=== PATIENT | female | born 1995 | race Caucasian/White ===

== ENCOUNTER 2019-03-16 18:39 | Emergency (ER) | payer OTHER ==
[~2019-03-16] VITALS: Ht 157.5 cm; Wt 57.1 kg
[2019-03-16] MEDS ORDERED: PRED20TA PO (20:19)
[2019-03-16 20:30] VITALS: BP 128/81
[2019-03-16] MEDS ORDERED: predniSONE 20 MG TAB PO ONE (20:30)
[2019-03-16] MEDS ORDERED: diphenhydrAMINE 50 MG CAP PO ONE (20:30)
== END 2019-03-16 20:32 | disposition home or self-care (01) ==
LOC: M ED 18:39
DX: T78.49XA Other allergy, initial encounter (principal); Y92.9 Unspecified place or not applicable; Y93.9 Activity, unspecified; Z72.0 Tobacco use

== ENCOUNTER 2019-03-23 16:48 | Emergency (ER) | payer OTHER ==
[~2019-03-23] VITALS: Ht 157.5 cm; Wt 56.8 kg
[~2019-03-23 16:48] MED LIST: PRED20TA PO
[2019-03-23] MEDS ORDERED: ONDANSETRON 4 MG ORAL DISINTEGRATING TAB (Q0162 PER 1MG) PO ONE (18:00)
[2019-03-23 18:09] LABS: BASO # 0.1 10^3/uL (0.0-0.2); BASO % 0.5 % (0.0-1.0); EOS # 0.1 10^3/uL (0.0-0.50); EOS % 0.9 % (0.0-3.0); HEMATOCRIT 40.4 % (36.0-47.0); HEMOGLOBIN 13.6 g/dl (12.0-15.5); LYMPH # 2.7 10^3/uL (1.5-6.5); LYMPH % 27.6 % (24.0-44.0); MEAN CORPUSCULAR HEMOGLOBIN 31.1 pg (27.0-33.0); MEAN CORPUSCULAR HGB CONC 33.7 g/dl (32.0-36.5); MEAN CORPUSCULAR VOLUME 92.2 fl (80.0-96.0); MONO # 0.7 10^3/uL (0.0-0.8); MONO % 7.7 % (0.0-5.0); NEUTROPHILS % 62.4 % (36.0-66.0); PLATELET COUNT, AUTOMATED 277 10^3/uL (150-450); RED BLOOD COUNT 4.38 10^6/uL (4.00-5.40); WHITE BLOOD COUNT 9.7 10^3/uL (4.0-10.0)
[2019-03-23 18:14] LABS: APPEARANCE, URINE CLEAR (CLEAR); BACTERIA, URINE AUTO NEGATIVE (NEGATIVE); BILIRUBIN, URINE AUTO NEGATIVE (NEGATIVE); BLOOD, URINE BLOOD NEGATIVE (NEGATIVE); COLOR, URINE STRAW (YELLOW); GLUCOSE, URINE (UA) AUTO NEGATIVE (NEGATIVE); KETONE, URINE AUTO NEGATIVE (NEGATIVE); LEUKOCYTE ESTERASE, URINE AUTO NEGATIVE (NEGATIVE); NITRITE, URINE AUTO NEGATIVE (NEGATIVE); PROTEIN, URINE AUTO NEGATIVE (NEGATIVE); RBC, URINE AUTO 0 /HPF (0-3); SPECIFIC GRAVITY URINE AUTO 1.004 (1.002-1.035); SQUAMOUS EPITHELIAL CELL UR AU 1 /HPF (0-6); UROBILINOGEN, URINE AUTO 0.2 mg/dL (0.0-2.0); WBC, URINE AUTO 0 /HPF (0-3)
[2019-03-23 18:24] LABS: AMPHETAMINES LEVEL URINE NEGATIVE (NEGATIVE); BARBITURATES URINE NEGATIVE (NEGATIVE); BENZODIAZEPINES URINE NEGATIVE (NEGATIVE); CANNABINOIDS URINE NEGATIVE (NEGATIVE); COCAINE METABOLITE URINE NEGATIVE (NEGATIVE); METHADONE URINE NEGATIVE (NEGATIVE); OPIATES URINE NEGATIVE (NEGATIVE); PHENCYCLIDINE URINE NEGATIVE (NEGATIVE)
[2019-03-23 18:33] LABS: HCG, SERUM QUALITATIVE NEGATIVE (NEGATIVE)
[2019-03-23 18:34] LABS: BLOOD UREA NITROGEN 13 MG/DL (7-18); CALCIUM LEVEL 9.2 MG/DL (8.5-10.1); CARBON DIOXIDE LEVEL 30 MEQ/L (21-32); CHLORIDE LEVEL 103 MEQ/L (98-107); CREATININE FOR GFR 0.76 MG/DL (0.55-1.30); FREE THYROXINE INDEX 4.7 % (1.3-4.8); GLOMERULAR FILTRATION RATE > 60.0 (>60); GLUCOSE, FASTING 81 MG/DL (70-100); MAGNESIUM LEVEL 2.1 MG/DL (1.8-2.4); POTASSIUM SERUM 4.2 MEQ/L (3.5-5.1); SODIUM LEVEL 139 MEQ/L (136-145); T UPTAKE 35 % (30-39); THYROXINE (T4) 13.4 UG/DL (4.5-12.0)
[2019-03-23] MEDS ORDERED: ONDA4TAB6 PO (19:07)
[2019-03-23] MEDS ORDERED: IBUPROFEN 600 MG TAB PO ONE (19:15)
[2019-03-23] MEDS ORDERED: ACETAMINOPHEN TAB 650MG DOSE (2X325MG) PO ONE (19:15)
[2019-03-23 19:19] VITALS: BP 125/77
--- NOTE | 2019-03-23 19:38 | ECGEPIP ---
[facility] - ED Test Date: 2019-03-23 Pat Name: SALENA WALKER Department: Room: - Gender: Female [employer]: ROXANE : 1995 Requested By: Che Trejo Order Number: [id number] Reading MD: Che Trejo Measurements Intervals [place] Rate: 73 P: 45 [place]: 136 QRS: 81 QRSD: 92 T: 41 QT: 383 QTc: 424 Interpretive Statements SINUS RHYTHM WITH SINUS ARRHYTHMIA POSSIBLE RIGHT VENTRICULAR CONDUCTION DELAY NO PRIOR FOR COMPARISON Electronically Signed on 03-23-2019 19:38:16 EDT by Che Trejo
== END 2019-03-23 19:21 | disposition home or self-care (01) ==
LOC: M ED 16:48
DX: R00.2 Palpitations (principal); R11.0 Nausea; F90.9 Attention-deficit hyperactivity disorder, unspecified type; Z97.5 Presence of (intrauterine) contraceptive device
CPT/HCPCS: 36415; 80048; 80307; 81001; 83735; 84436; 84443; 84479; 84703; 85025; 85379; 93005; 99284; Q0162

== ENCOUNTER 2020-08-28 16:26 | Emergency (ER) | payer OTHER ==
[~2020-08-28] VITALS: Ht 157.5 cm; Wt 56.9 kg
[~2020-08-28 16:26] MED LIST changes: +ONDA4TAB6 PO
[2020-08-28] MEDS ORDERED: METR-265 PO (16:41)
[2020-08-28] MEDS ORDERED: LIDOCAINE 2% W/EPINEPHRINE 20ML VIAL **PRES FREE INJ ONE (17:00)
[2020-08-28] MEDS ORDERED: BOOSTRIX/ADACEL VACCINE (DIPHTH/PERTUSS/ACELL/TETANUS) 0.5ML SYR IM ONE (17:00)
[2020-08-28] MEDS ORDERED: BACITRACIN OINTMENT 30GM TUBE TOP PRN (17:15)
[2020-08-28 17:32] VITALS: BP 128/78
== END 2020-08-28 17:37 | disposition home or self-care (01) ==
LOC: M ED 16:26
DX: S61.411A Laceration without foreign body of right hand, initial encounter (principal); W55.03XA Scratched by cat, initial encounter; Y92.834 Zoological garden (Zoo) as the place of occurrence of the external cause; Y93.K9 Activity, other involving animal care; Y99.0 Civilian activity done for income or pay